=== PATIENT | female | born 1975 | race Hispanic/Latino ===

== ENCOUNTER 2017-08-25 21:29 | Emergency (ER) | payer MEDICAID ==
[~2017-08-25] VITALS: Ht 152.4 cm; Wt 85.8 kg
[~2017-08-25 21:29] MED LIST: AMOXICILLIN500 MG OR; AMOXICILLIN500 MG PO; ANEXSIA; BACTRIM DS1 TAB PO; BENTYL10 MG PO; CARAFATE1 GM/10 M1 PO; CIPRO500 MG OR; CLONAZEPAM1 MG PO; COUMADIN5 M1 IV; COUMADIN5 MG OR; COUMADIN5 MG PO; COUMADIN7.5 MG OR; DENIES CURRENT MEDS; EFFEXOR XR75 MG PO; EFFEXOR75 MG OR; FLEXERIL OR; FLEXERIL10 MG PO; IRON325 MG PO; KLONOPIN1 MG; LORTAB 5-325 MG1 TAB PO; LORTAB 5/3255 MG PO; LORTAB 7.5 PO; LORTAB5 PO; MEDDOSEPAK PO; METHOCARBAM500 MG; METRONIDAZOL500 MG PO; MOTRIN800 MG OR; NAPROSYN500 MG OR; NASONEX50 MCG/AC; NEXIUM20 MG PO; NEXIUM40 M1 PO; NO HOME MEDS; NORCO1 TA1 PO; OMEPRAZOLE20 MG PO; OXYCODONE-ACETAMINOP; PAXIL40 MG; PERCOCET 5/325M1 TAB OR; PERCOCET 5/325M1 TAB PO; PREDNISONE10 MG PO; PREVACID30 M2 OR; PRILOSEC20 MG PO; PRILOSEC20 MG/CAP PO; PROAIR HFA IN; PROCTOFOAM HC10 GM RE; PROMETHAZINE12.5 MG; PROMETHAZINE25 MG PO; PROTONIX40 M2 OR; PROZAC10 MG PO; SOMA250 MG PO; TRAMADOL HCL100 MG PO; TRAMADOL HCL50 MG; TRAMADOL HCL50 MG PO; TYLENOL # 31 TAB PO; ULTRAM50 M1 OR; ULTRAM50 M1 PO; ULTRAM50 MG OR; WARFARIN5 MG; ZOFRAN ODT4 MG OR; ZOFRAN ODT4 MG PO; ZOFRAN ODT8 MG PO; ZOFRAN4 MG/TAB PO; ZOFRAN8 MG PO
[2017-08-25 22:05] LABS: URINE BILIRUBIN - DIPSTICK NEGATIVE (NEGATIVE); URINE BLOOD DIPSTICK SMALL (NEGATIVE); URINE COLOR YELLOW; URINE GLUCOSE - DIPSTICK NEGATIVE (NEGATIVE); URINE KETONE NEGATIVE (NEGATIVE); URINE LEUK ESTERASE NEGATIVE (NEGATIVE); URINE NITRITE - DIPSTICK NEGATIVE (Negative); URINE PH 5.5 (4.5-8.0); URINE PROTEIN - DIPSTICK NEGATIVE (NEG-TRACE); URINE SPECIFIC GRAVITY 1.025; URINE UROBILINOGEN - DIPSTICK 0.2 E.U./dL (0.2)
[2017-08-25 22:12] LABS: URINE CLARITY CLEAR
[2017-08-25 22:13] LABS: URINE SQUAMOUS EPITHELIAL CELL FEW EPI/hpf (0-FEW)
[2017-08-25] MEDS ORDERED: SEPTRA4001 PO (22:20)
[2017-08-25] MEDS ORDERED: BACTROBAN TOP (22:20)
[2017-08-25 22:40] VITALS: BP 136/70
== END 2017-08-25 22:40 | disposition home or self-care (01) | DRG 607 ==
LOC: ED 21:29
PROVIDERS: Emergency Medicine
DX: L73.9 Follicular disorder, unspecified (principal); N23 Unspecified renal colic; Z87.442 Personal history of urinary calculi